=== PATIENT | male | born 2000 | race Hispanic/Latino ===

== ENCOUNTER 2022-01-28 11:02 | Emergency (ER) | payer SELFPAY ==
--- OUTSIDE RECORDS SUMMARY | 2022-01-28 11:04 | XMS REPORT | Continuity of Care Document ---
:2000 Author Organization [facility] Address [address] [place] [address] [place] [id number] Care Team Providers Name Role Phone Unavailable Unavailable Unavailable Problems This patient has no known problems. Allergies, Adverse Reactions, Alerts This patient has no known allergies or adverse reactions. Medications This patient has no known medications. Procedures This patient has no known procedures. Encounters Start End Encounter Admission Attending Care Care Encounter Source Date/Time Date/Time Type Type Clinicians Facility Department ID 2021-08-02 2021-08-02 Emergency [facility] 064 [id number] [address] [place] 00:00:00 00:00:[address] Results This patient has no known results.
--- NOTE | 2022-01-28 12:22 | RAD REPORT ---
EXAM DESCRIPTION: RAD - Knee Left 3 View - 01/28/2022 12:15 pm CLINICAL HISTORY: Left knee pain status post injury FINDINGS: No fracture or dislocation is seen. If patient continues have symptoms to suggest an occult fracture, ligamentous or meniscal injury then MRI would be recommended
--- NOTE | 2022-01-28 13:04 | ER ---
Nurse's Notes [facility] Name: Paramjit Elizondo Age: 21 yrs Sex: Male : 2000 Arrival Date: 01/28/2022 Time: 11:05 Bed Waiting Private MD: Diagnosis: Pain in knee Presentation: 01/28 11:44 Chief complaint: Patient states: Tripped and fell yesterday, reports L knee pain near ph knee cap. Coronavirus screen: Vaccine status: Patient reports being unvaccinated. Ebola Screen: No symptoms or risks identified at this time. Initial Sepsis Screen: Does the patient meet any 2 criteria? No. Patient's initial sepsis screen is negative. Does the patient have a suspected source of infection? No. Patient's initial sepsis screen is negative. Risk Assessment: Do you want to hurt yourself or someone else? Patient reports no desire to harm self or others. Onset of symptoms was January 28, 2022. 11:44 Method Of Arrival: Ambulatory 11:44 Acuity: KYLAH 4 ph Triage Assessment: 11:47 General: Appears in no apparent distress. comfortable, Behavior is calm, cooperative, ph appropriate for age. Pain: Complains of pain in left knee. Neuro: Level of Consciousness is awake, alert, obeys commands, Oriented to person, place, time, situation. Musculoskeletal: Circulation, motion, and sensation intact. Range of motion: intact in all extremities. Historical: - Allergies: 11:45 No Known Allergies; ph - PMHx: 11:45 None; ph - PSHx: 11:45 None; ph - Immunization history:: Adult Immunizations unknown. - Social history:: Smoking status: Patient denies any tobacco usage or history of. Screenin:07 Abuse screen: Denies threats or abuse. Denies injuries from another. Nutritional ph screening: No deficits noted. Tuberculosis screening: No symptoms or risk factors identified. Fall Risk None identified. Assessment: 14:05 Reassessment: Pt d/c from lobby/triage. General: SEE TRIAGE ASSESSMENT. ph Vital Signs: 11:44 BP 153 / 95; Pulse 76; Resp 18; Temp 98.1; Pulse Ox 100% on R/A; Weight 90.72 kg; ph Height 5 ft. 8 in. (172.72 cm); 14:05 BP 128 / 87; Pulse 71; Resp 18; Temp 97.6; Pulse Ox 99% on R/A; ph 11:44 Body Mass Index 30.41 (90.72 kg, 172.72 cm) ph ED Course: 11:05 Patient arrived in ED. ds1 11:26 Triston Ye DO is Attending Physician. ms3 11:45 Triage completed. ph 11:46 Arm band placed on. ph 11:49 Patient placed in waiting room, Patient notified of wait time. X-ray ordered. ph 12:17 XRAY Knee LEFT 3 view In Process Unspecified. EDMS 13:02 David Yeh MD is Referral Physician. ms3 13:06 Tanika Hernández, RN is Primary Nurse. ph 14:05 Patient has correct armband on for positive identification. ph 14:07 No provider procedures requiring assistance completed. Patient did not have IV access ph during this emergency room visit. Knee immobilizer applied on left knee. Administered Medications: No medications were administered Outcome: 13:03 Discharge ordered by MD. ms3 14:07 Discharged to home ambulatory, with significant other. ph 14:07 Condition: good 14:07 Discharge instructions given to patient, Instructed on discharge instructions, follow up and referral plans. Demonstrated understanding of instructions, follow-up care. 14:08 Patient left the ED. ph Signatures: Dispatcher [employer] EDTX James Mikki ds1 Tanika Hernández, RN RN ph Triston Ye DO DO ms3
--- NOTE | 2022-01-28 13:04 | EDPHYS ---
Physician Documentation [facility] Name: Paramjit Elizondo Age: 21 yrs Sex: Male : 2000 Arrival Date: 01/28/2022 Time: 11:05 Bed Waiting Private MD: ED Physician Triston Ye HPI: 01/28 13:03 This 21 yrs old Male presents to ER via Ambulatory with complaints of Knee ms3 Injury. 13:03 The patient presents with pain, that is acute. The complaints affect the left knee. ms3 Context: The problem was sustained. 13:03 Onset: The symptoms/episode began/occurred acutely, 2 day(s) ago. Modifying factors: ms3 The symptoms are alleviated by nothing. the symptoms are aggravated by weight bearing. Associated signs and symptoms: The patient has no apparent associated signs or symptoms. Severity of symptoms: At their worst the symptoms were moderate, this morning, in the emergency department the symptoms are unchanged. Historical: - Allergies: 11:45 No Known Allergies; ph - PMHx: 11:45 None; ph - PSHx: 11:45 None; ph - Immunization history:: Adult Immunizations unknown. - Social history:: Smoking status: Patient denies any tobacco usage or history of. ROS: 13:03 Constitutional: Negative for fever, and chills. Eyes: Negative for injury, pain, ms3 redness, and discharge, ENT: Negative for injury, pain, and discharge, Neck: Negative for injury, pain, and swelling, Cardiovascular: Negative for chest pain, and palpitations. Respiratory: Negative for shortness of breath, cough, wheezing, and pleuritic chest pain, Abdomen/GI: Negative for abdominal pain, nausea, vomiting, diarrhea, and constipation, Back: Negative for injury and pain, Skin: Negative for injury, rash, and discoloration, Neuro: Negative for headache, weakness, numbness, tingling. 13:03 MS/extremity: Positive for pain, of the left knee. Exam: 13:03 Constitutional: This is a well developed, well nourished patient who is awake, alert, ms3 and in no acute distress. Head/Face: Normocephalic, atraumatic. Chest/axilla: Normal chest wall appearance and motion. Nontender with no deformity. Cardiovascular: Regular rate and rhythm with a normal S1 and S2. No gallops, murmurs, or rubs. Normal PMI, no JVD. No pulse deficits. Respiratory: Lungs have equal breath sounds bilaterally, clear to auscultation and percussion. No rales, rhonchi or wheezes noted. No increased work of breathing, no retractions or nasal flaring. Abdomen/GI: Soft, non-tender, with normal bowel sounds. No distension or tympany. No guarding or rebound. No evidence of tenderness throughout. Skin: Warm, dry with normal turgor. Normal color with no rashes, no lesions, and no evidence of cellulitis. 13:03 Musculoskeletal/extremity: Extremities: noted in the left knee: pain, tenderness. Vital Signs: 11:44 BP 153 / 95; Pulse 76; Resp 18; Temp 98.1; Pulse Ox 100% on R/A; Weight 90.72 kg; ph Height 5 ft. 8 in. (172.72 cm); 14:05 BP 128 / 87; Pulse 71; Resp 18; Temp 97.6; Pulse Ox 99% on R/A; ph 11:44 Body Mass Index 30.41 (90.72 kg, 172.72 cm) ph MDM: 13:03 Patient medically screened. ms3 13:03 Differential diagnosis: dislocation, closed fracture, contusion. Data reviewed: vital ms3 signs, nurses notes, radiologic studies, plain films. Data interpreted: Pulse oximetry: on room air is 99 %. Interpretation: normal. Counseling: I had a detailed discussion with the patient and/or guardian regarding: the historical points, exam findings, and any diagnostic results supporting the discharge/admit diagnosis, radiology results, the need for outpatient follow up, to return to the emergency department if symptoms worsen or persist or if there are any questions or concerns that arise at home. 01/28 11:47 Order name: XRAY Knee LEFT 3 view; Complete Time: 22:00 ph 01/28 14:07 Order name: Knee Immobilizer; Complete Time: 14:07 ph Administered Medications: No medications were administered Disposition Summary: 01/28/22 13:03 Discharge Ordered Location: Home ms3 Condition: Stable ms3 Problem: new ms3 Symptoms: are unchanged ms3 Diagnosis - Pain in knee ms3 Followup: ms3 - With: Yeh, David, MD - When: 2 - 3 days - Reason: Discharge Instructions: - Discharge Summary Sheet ph - Acute Knee Pain, Adult ms3 Forms: - Medication Reconciliation Form ms3 - Thank You Letter ms3 - Work release form ph - Antibiotic Education ms3 - Prescription Opioid Use ms3 Prescriptions: - Ibuprofen 600 mg Oral Tablet - take 1 tablet by ORAL route every 6 hours As needed take with food; 30 tablet; ms3 Refills: 0, Product Selection Permitted Signatures: Dispatcher [employer] Tanika Richmond RN RN ph Triston Ye, DO ms3
[2022-01-28 16:51] VITALS: BP 153/95; TEMP 98.1; O2SAT 100
== END 2022-01-28 14:08 | disposition home or self-care (01) ==
LOC: ER 11:02
DX: M25.562 Pain in left knee (principal)
CPT/HCPCS: 99283

== ENCOUNTER 2022-10-30 03:03 | Emergency (ER) | payer SELFPAY ==
[2022-10-30] MEDS ORDERED: KETOROLAC 30 MG/ML INJ ONE (03:28)
--- OUTSIDE RECORDS SUMMARY | 2022-10-30 04:27 | XMS REPORT | Continuity of Care Document ---
:2000 Author Organization [facility] t Address [address] [place] [address] Care Team Providers Name Role Phone Asked, No Pcp Primary Care Physician Unavailable Problems This patient has no known problems. Allergies, Adverse Reactions, Alerts This patient has no known allergies or adverse reactions. Social History Social Habit Start Date Stop Date Quantity Comments Source Sex Assigned At [birth year] [facility] 00:00:00 00:00:00 Smoking Status Start Date Stop Date Source Tobacco smoking consumption unknown [facility] Medications This patient has no known medications. Procedures This patient has no known procedures. Encounters Start End Encounter Admission Attending Care Care Encounter Source Date/Time Date/Time Type Type Clinicians Facility Department ID 2021-08-02 2021-08-02 Emergency [facility] [id number] [place] 00:00:00 00:00:[address] Results This patient has no known results.
[2022-10-30 05:08] LABS: Absolute Lymphocytes (CBC) 2.6 K/uL (0.7-4.9); Hematocrit 46.6 % (39.6-49.0); Lymphocytes % 28.1 % (15.3-44.8); RBC Red Blood Cell Count 5.24 M/uL (4.33-5.43)
[2022-10-30 05:11] LABS: Potassium 3.8 mmol/L (3.5-5.1); Troponin High Sensitivity 3.4 pg/mL (<58.9)
--- NOTE | 2022-10-30 05:30 | ER ---
Nurse's Notes [facility] Name: Paramjit Elizondo Age: 22 yrs Sex: Male : 2000 Arrival Date: 10/30/2022 Time: 03:03 Bed 19 Private MD: Diagnosis: Chest pain, unspecified;Chest pain on breathing Presentation: 10/30 03:02 Chief complaint: Patient states: CP THAT STARTED LAST NIGHT. WOKE HIM UP OUT OF HIS [facility] SLEEP. Coronavirus screen: Vaccine status: Patient reports being unvaccinated. At this time, the client does not indicate any symptoms associated with coronavirus-19. Ebola Screen: No symptoms or risks identified at this time. Initial Sepsis Screen: Does the patient meet any 2 criteria? No. Patient's initial sepsis screen is negative. Does the patient have a suspected source of infection? No. Patient's initial sepsis screen is negative. Risk Assessment: Do you want to hurt yourself or someone else? Patient reports no desire to harm self or others. Onset of symptoms was October 29, 2022. 03:02 Method Of Arrival: Ambulatory [facility] 03:02 Acuity: KYLAH 3 jj7 Triage Assessment: 03:18 General: Appears in no apparent distress. uncomfortable, Behavior is calm, cooperative, jj7 appropriate for age. Pain: Complains of pain in xiphoid area and mid-sternal area. Cardiovascular: Reports chest pain. Historical: - Allergies: 03:18 No Known Allergies; jj7 - PMHx: 03:18 None; jj7 - PSHx: 03:18 None; jj7 - Immunization history:: Client reports having NOT received the Covid vaccine. Flu vaccine is not up to date. - Social history:: Smoking status: Patient denies any tobacco usage or history of. Patient/guardian denies using alcohol, street drugs. - Family history:: not pertinent. - Hospitalizations: : No recent hospitalization is reported. Screenin:20 [facility] ED Fall Risk Assessment (Adult) History of falling in the last 3 months, jj7 including since admission No falls in past 3 months (0 pts) Confusion or Disorientation No (0 pts) Intoxicated or Sedated No (0 pts) Impaired Gait No (0 pts) Mobility Assist Device Used No (0 pt) Altered Elimination No (0 pt) Score/Fall Risk Level 0 - 2 = Low Risk. [facility] ED Fall Risk Assessment (Adult) Score/Fall Risk Level 0 - 2 = Low Risk Oriented to surroundings, Maintained a safe environment. Abuse screen: Denies threats or abuse. Nutritional screening: No deficits noted. Tuberculosis screening: No symptoms or risk factors identified. Assessment: 03:20 Reassessment: SEE TRIAGE ASSESSMENT. Pain: Pain does not radiate. Pain began suddenly. jj7 Vital Signs: 03:02 BP 132 / 92; Pulse 94; Resp 19; Temp 98; Pulse Ox 98% ; Weight 86.18 kg; Height 5 ft. 8 jj7 in. (172.72 cm); Pain 7/10; 04:05 BP 123 / 84; Pulse 87; Resp 18; Pulse Ox 97% ; Pain 5/10; jj7 05:09 BP 126 / 84; Pulse 80; Resp 20; Pulse Ox 98% ; Pain 1/10; jj7 03:02 Body Mass Index 28.89 (86.18 kg, 172.72 cm) jj7 ED Course: 03:03 Patient arrived in ED. ja2 03:06 Royal Kirby MD is Attending Physician. rn 03:13 Shraddha Retana RN is Primary Nurse. jj7 03:18 Triage completed. jj7 03:18 Arm band placed on right wrist. Patient placed in an exam room, on a stretcher, on jj7 oxygen, on monitoring manager, on pulse oximetry. 03:20 Patient has correct armband on for positive identification. Bed in low position. Call jj7 light in reach. Adult w/ patient. Client placed on continuous cardiac and pulse oximetry monitoring. NIBP monitoring applied. phototypesetting equipment monitor on. 05:12 No provider procedures requiring assistance completed. IV discontinued, intact, jj7 bleeding controlled, No redness/swelling at site. Pressure dressing applied. 05:12 Patient maintains SpO2 saturation greater than 95% on room air. jj7 Administered Medications: 03:31 Drug: Ketorolac 15 mg Route: IVP; Site: right antecubital; jj7 03:40 Follow up: Response: Marked relief of symptoms jj7 Medication: 03:20 VIS not applicable for this client. jj7 Outcome: 04:55 Discharge ordered by . rn 05:12 Discharged to home ambulatory, with significant other. jj7 05:12 Condition: improved 05:12 Discharge instructions given to patient, Instructed on discharge instructions, follow up and referral plans. Demonstrated understanding of instructions, follow-up care. 05:18 Patient left the ED. jj7 Signatures: Royal Kirby MD MD rn Alexander, Jessica ja2 Johnson, Juwairiyah, RN RN jj7
--- NOTE | 2022-10-30 05:30 | EDPHYS ---
Physician Documentation [facility] Name: Paramjit Elizondo Age: 22 yrs Sex: Male : 2000 Arrival Date: 10/30/2022 Time: 03:03 Bed 19 Private MD: ED Physician Royal Kirby HPI: 10/30 03:37 This 22 yrs old Male presents to ER via Ambulatory with complaints of Chest rn Pain. 03:37 The patient or guardian reports chest pain that is located primarily in the anterior rn chest wall. The pain does not radiate. Associated signs and symptoms: Pertinent positives: cough, Pertinent negatives: abdominal pain, lower extremity pain, lower extremity swelling, near syncope, palpitations, shortness of breath, syncope, vomiting. The chest pain is described as sharp, stabbing. Duration: The patient or guardian reports multiple episodes. Modifying factors: The symptoms are alleviated by nothing. the symptoms are aggravated by cough, deep breath. Severity of pain: At its worst the pain was moderate in the emergency department the pain has improved. The patient has not experienced similar symptoms in the past. The patient has not recently seen a physician. Pt reports central chest pain, sharp/stabbing, worse with movement and deep inspiration. NO trauma. + sick recently, just got over cough/congestion. Feels better but chest pain woke him up from sleep tonight. NO hemoptysis. No famhx of early cardiac problems. No drugs or smoking. . Historical: - Allergies: 03:18 No Known Allergies; jj7 - PMHx: 03:18 None; jj7 - PSHx: 03:18 None; jj7 - Immunization history:: Client reports having NOT received the Covid vaccine. Flu vaccine is not up to date. - Social history:: Smoking status: Patient denies any tobacco usage or history of. Patient/guardian denies using alcohol, street drugs. - Family history:: not pertinent. - Hospitalizations: : No recent hospitalization is reported. ROS: 03:37 Constitutional: Negative for fever, chills, and weight loss, Eyes: Negative for injury, rn pain, redness, and discharge, Neck: Negative for injury, pain, and swelling, Cardiovascular: + chest pain Respiratory: Negative for wheezing, and pleuritic chest pain, Abdomen/GI: Negative for abdominal pain, nausea, vomiting, diarrhea, and constipation, MS/Extremity: Negative for injury and deformity, Skin: Negative for injury, rash, and discoloration, Neuro: Negative for headache, weakness, numbness, tingling, and seizure. Exam: 03:37 Constitutional: This is a well developed, well nourished patient who is awake, alert, rn and in no acute distress. Head/Face: Normocephalic, atraumatic. Eyes: Periorbital areas with no swelling, redness, or edema. Cardiovascular: Regular rate and rhythm. No pulse deficits. Respiratory: Clear bilteral breath sounds, no retractions. No wheezing. Abdomen/GI: Soft, non-tender Skin: Warm, dry with normal turgor. Normal color with no rashes, no lesions, and no evidence of cellulitis. MS/ Extremity: Pulses equal, no cyanosis. Neuro: Awake and alert, GCS 15 04:00 ECG was reviewed by the Attending Physician. rn Vital Signs: 03:02 BP 132 / 92; Pulse 94; Resp 19; Temp 98; Pulse Ox 98% ; Weight 86.18 kg; Height 5 ft. 8 jj7 in. (172.72 cm); Pain 7/10; 04:05 BP 123 / 84; Pulse 87; Resp 18; Pulse Ox 97% ; Pain 5/10; jj7 05:09 BP 126 / 84; Pulse 80; Resp 20; Pulse Ox 98% ; Pain 1/10; jj7 03:02 Body Mass Index 28.89 (86.18 kg, 172.72 cm) jj7 MDM: 03:06 Patient medically screened. rn 04:04 Independent interpretation of the following test(s) in the Emergency Department EKG: rn See my EKG interpretation above X-Ray: My interpretation is CXR neg for pneumothorax or acute infiltrate. 04:53 Differential diagnosis: acute pericarditis, anxiety, chest wall pain, costochondritis, rn esophagitis, gastritis, gastroesophageal reflux disease (GERD), pericarditis, pleurisy, pneumothorax, pulmonary embolus. Data reviewed: vital signs, nurses notes, lab test result(s), EKG, radiologic studies, plain films, and as a result, I will discharge patient. Counseling: I had a detailed discussion with the patient and/or guardian regarding: the historical points, exam findings, and any diagnostic results supporting the discharge/admit diagnosis, lab results, radiology results, the need for outpatient follow up, to return to the emergency department if symptoms worsen or persist or if there are any questions or concerns that arise at home. Response to treatment: the patient's symptoms have mildly improved after treatment, and as a result, I will discharge patient. ED course: CXR neg, no abnormal findings in bloodwork. D-dimer <500, normal by our cutoff. + sharp stabbing pain after recent infection, pleuritic pain, worse with deep inspiration and movement, with neg d-dimer. Will dc home with return precautions. Trop and ecg normal as well. . 10/30 03:12 Order name: Cardiac monitoring; Complete Time: 03:35 rn 10/30 03:12 Order name: EKG - Nurse/Tech; Complete Time: :35 rn 10/30 03:12 Order name: IV Saline Lock; Complete Time: :35 rn 10/30 03:12 Order name: Labs collected and sent; Complete Time: :35 rn 10/30 03:12 Order name: O2 Per Protocol; Complete Time: :35 rn 10/30 03:12 Order name: O2 Sat Monitoring; Complete Time: 03:35 rn EC:00 Rate is 81 beats/min. Rhythm is regular. QRS [place] is Normal. MT interval is normal. QRS rn interval is normal. QT interval is normal. No Q waves. T waves are Normal. No ST changes noted. Clinical impression: Normal ECG. Interpreted by me. Reviewed by me. Administered Medications: 03:31 Drug: Ketorolac 15 mg Route: IVP; Site: right antecubital; jj7 03:40 Follow up: Response: Marked relief of symptoms jj7 Disposition Summary: 10/30/22 04:55 Discharge Ordered Location: Home rn Problem: new rn Symptoms: have improved rn Condition: Stable rn Diagnosis - Chest pain, unspecified rn - Chest pain on breathing rn Followup: rn - With: Private Physician - When: As needed - Reason: Recheck today's complaints, Re-evaluation by your physician Discharge Instructions: - Discharge Summary Sheet rn - Nonspecific Chest Pain, Adult rn - Pleurisy rn Forms: - Medication Reconciliation Form rn - Thank You Letter rn - Antibiotic varnish inspector - Prescription Opioid Use rn - Work release form mw2 Signatures: Royal Kirby MD MD rn Johnson, Juwairiyah, RN RN jj7
[2022-10-30 07:41] VITALS: BP 126/84; O2SAT 98
--- NOTE | 2022-10-30 14:42 | RAD REPORT ---
EXAM DESCRIPTION: Chest Single View CLINICAL HISTORY: 22 years Male Chest Pain COMPARISON: None FINDINGS: Lung volumes adequate. Cardiac silhouette is normal. No pneumothorax. No large pleural effusion. No focal consolidation. No acute bony finding. IMPRESSION: No acute cardiopulmonary findings. Electronically signed by: Margie Rausch MD 10/30/2022 4:48 AM DITCHING MACHINE ENGINEER Due to temporary technical issues with the PACS/Fluency reporting system, reports are being signed by the in house radiologists without review as a courtesy to insure prompt reporting. The interpreting radiologist is fully responsible for the content of the report.
== END 2022-10-30 05:18 | disposition home or self-care (01) ==
LOC: ER 03:03
DX: R07.89 Other chest pain (principal); R07.1 Chest pain on breathing
CPT/HCPCS: 36415; 71045; 80048; 83880; 84484; 85025; 85379; 96374; 99284

== ENCOUNTER 2022-12-17 11:02 | Emergency (ER) | payer SELFPAY ==
--- OUTSIDE RECORDS SUMMARY | 2022-12-17 11:07 | XMS REPORT | Continuity of Care Document ---
:2000 Author Organization [facility] t Address [address] [facility] [address] [place] [address] Care Team Providers Name Role Phone Asked, No Pcp Primary Care Physician Unavailable Problems This patient has no known problems. Allergies, Adverse Reactions, Alerts This patient has no known allergies or adverse reactions. Social History Social Habit Start Date Stop Date Quantity Comments Source Sex Assigned At [birth year] [facility] 00:00:00 00:00:00 Smoking Status Start Date Stop Date Source Tobacco smoking consumption unknown [facility] Medications This patient has no known medications. Procedures This patient has no known procedures. Encounters Start End Encounter Admission Attending Care Care Encounter Source Date/Time Date/Time Type Type Clinicians Facility Department ID 2021-08-02 2021-08-02 Emergency [facility] 064 [id number] [address] [place] 00:00:00 00:00:[address] Results This patient has no known results.
[2022-12-17 11:32] LABS: Urine Blood Negative (Negative); Urine Glucose Negative (Negative); Urine Protein Negative (Negative); Urine Specific Gravity 1.025 (1.005-1.030)
[2022-12-17 11:40] LABS: Absolute Lymphocytes (CBC) 1.4 K/uL (0.7-4.9); Hematocrit 46.3 % (39.6-49.0); Lymphocytes % 14.5 % (15.3-44.8); MCV 88.8 fL (80-100); MPV 8.2 fL (7.6-11.3); RBC Red Blood Cell Count 5.21 M/uL (4.33-5.43)
[2022-12-17 11:41] LABS: Protime INR 1.02
[2022-12-17 11:48] LABS: Barbiturates NEGATIVE (NEGATIVE); Benzodiazepines NEGATIVE (NEGATIVE); Cocaine NEGATIVE (NEGATIVE); METHAMPHETAM NEGATIVE (NEGATIVE); Methadone NEGATIVE (NEGATIVE); Opiates NEGATIVE (NEGATIVE); Phencyclidine NEGATIVE (NEGATIVE); THC Cannibis NEGATIVE (NEGATIVE)
[2022-12-17 11:52] LABS: ALT/SGPT 36 U/L (16-61); AST/SGOT 22 U/L (15-37); Albumin 4.1 g/dL (3.4-5.0); BUN Blood Urea Nitrogen 12 mg/dL (7-18); Bicarbonate 28 mmol/L (21-32); Bilirubin Direct 0.2 mg/dL (0-0.2); Glomerular Filtration Rate 99 ml/min (=/>90); Glucose Level 113 mg/dL (74-106); Lipase 22 U/L (13-75); Magnesium 2.3 mg/dL (1.6-2.4); Sodium Level 138 mmol/L (136-145)
[2022-12-17 11:57] LABS: Alkaline Phosphatase 110 U/L (45-117); Bilirubin Total 0.7 mg/dL (0.2-1.0); NT PRO-BNP 11 pg/mL (<125); Protein, Total 7.5 g/dL (6.4-8.2)
[2022-12-17 12:15] LABS: Troponin High Sensitivity < 3.0 pg/mL (<58.9)
--- NOTE | 2022-12-17 12:33 | RAD REPORT ---
EXAM DESCRIPTION: CT - Chest For Pe Angio - 12/17/2022 12:03 pm CLINICAL HISTORY: Chest pain COMPARISON: None. TECHNIQUE: Dynamically enhanced axial 3 mm thick images of the chest were obtained during administra tion of 100 mL Isovue 370 IV contrast. Coronal and oblique reconstruction images were generated and r eviewed. Exam utilizes a protocol for optimal evaluation of pulmonary arterial tree. Maximum intensity projections 3D imaging was utilized All CT scans are performed using dose optimization technique as appropriate and may include automated exposure control or mA/KV adjustment according to patient size. FINDINGS: A pulmonary embolus is not seen. A thoracic aortic aneurysm is not noted. A pleural effusion is not seen. A pericardial effusion is not seen. A lung consolidation is not present. IMPRESSION: Negative for a pulmonary embolism.
--- NOTE | 2022-12-17 12:34 | RAD REPORT ---
EXAM DESCRIPTION: [place] Single View12/17/2022 12:07 pm CLINICAL HISTORY: Chest pain COMPARISON: October 2022 FINDINGS: The lungs appear clear of acute infiltrate. The heart is normal size IMPRESSION: No acute abnormalities displayed
[2022-12-17 13:43] VITALS: BP 132/79; TEMP 97.7; O2SAT 96
--- NOTE | 2022-12-18 13:05 | EKG ---
Test Date: 2022-12-17 Test Time: 11:19:11 Pulmonary Disease Specialist: KOKO MEASUREMENT RESULTS: Intervals: Rate: 76 DE: 144 QRSD: 92 QT: 360 QTc: 405 [place]: P: 64 DE: 144 QRS: 11 T: 66 INTERPRETIVE STATEMENTS: Normal sinus rhythm Normal ECG No previous ECG available for comparison Electronically Signed On 12-18-22 13:03:23 DIRECTOR OF LABOR AND DELIVERY by Abdullahi Moss
--- NOTE | 2023-01-03 14:22 | EDPHYS ---
Physician Documentation [facility] Name: Paramjit Elizondo Age: 22 yrs Sex: Male : 2000 Arrival Date: 12/17/2022 Time: 11:05 Bed IW2 Private MD: ED Physician Chele Chun HPI: 12/17 12:44 This 22 yrs old Male presents to ER via Ambulatory with complaints of Chest yasmany Pain, Shortness Of Breath, Vomiting. 12:44 The patient or guardian reports chest pain that is located primarily in the anterior yasmany chest wall, bilaterally. The pain does not radiate. Associated signs and symptoms: Pertinent positives: shortness of breath. The chest pain is described as aching. Duration: The patient or guardian reports multiple episodes, with no pattern. Modifying factors: The symptoms are alleviated by nothing. the symptoms are aggravated by cough, deep breath. Severity of pain: At its worst the pain was mild in the emergency department the pain is unchanged. The patient has not experienced similar symptoms in the past. Historical: - Allergies: 11:10 No Known Allergies; ld1 - PMHx: 11:10 None; ld1 - PSHx: 11:10 None; ld1 - Immunization history:: Adult Immunizations up to date, Client reports having NOT received the Covid vaccine. - Social history:: Smoking status: Patient denies any tobacco usage or history of. Patient uses alcohol, occasionally. - Family history:: not pertinent. ROS: 12:44 Constitutional: Negative for fever, chills, and weight loss, Eyes: Negative for injury, yasmany pain, redness, and discharge, ENT: Negative for injury, pain, and discharge, Neck: Negative for injury, pain, and swelling, Abdomen/GI: Negative for abdominal pain, nausea, vomiting, diarrhea, and constipation, Back: Negative for injury and pain, : Negative for injury, bleeding, discharge, and swelling, MS/Extremity: Negative for injury and deformity, Skin: Negative for injury, rash, and discoloration, Neuro: Negative for headache, weakness, numbness, tingling, and seizure, Psych: Negative for depression, anxiety, suicide ideation, homicidal ideation, and hallucinations, Allergy/Immunology: Negative for hives, rash, and allergies, Endocrine: Negative for neck swelling, polydipsia, polyuria, polyphagia, and marked weight changes, Hematologic/Lymphatic: Negative for swollen nodes, abnormal bleeding, and unusual bruising. 12:44 Cardiovascular: Positive for chest pain, of the chest. 12:44 Respiratory: Positive for pleurisy, shortness of breath. Exam: 12:44 Constitutional: This is a well developed, well nourished patient who is awake, alert, yasmany and in no acute distress. Head/Face: Normocephalic, atraumatic. Eyes: Pupils equal round and reactive to light, extra-ocular motions intact. Lids and lashes normal. Conjunctiva and sclera are non-icteric and not injected. Cornea within normal limits. Periorbital areas with no swelling, redness, or edema. ENT: Nares patent. No nasal discharge, no septal abnormalities noted. Tympanic membranes are normal and external auditory canals are clear. Oropharynx with no redness, swelling, or masses, exudates, or evidence of obstruction, uvula midline. Mucous membranes moist. Neck: Trachea midline, no thyromegaly or masses palpated, and no cervical lymphadenopathy. Supple, full range of motion without nuchal rigidity, or vertebral point tenderness. No Meningismus. Chest/axilla: Normal chest wall appearance and motion. Nontender with no deformity. No lesions are appreciated. Cardiovascular: Regular rate and rhythm with a normal S1 and S2. No gallops, murmurs, or rubs. Normal PMI, no JVD. No pulse deficits. Respiratory: Lungs have equal breath sounds bilaterally, clear to auscultation and percussion. No rales, rhonchi or wheezes noted. No increased work of breathing, no retractions or nasal flaring. Abdomen/GI: Soft, non-tender, with normal bowel sounds. No distension or tympany. No guarding or rebound. No evidence of tenderness throughout. Back: No spinal tenderness. No costovertebral tenderness. Full range of motion. Male : Normal genitalia with no discharge or lesions. Skin: Warm, dry with normal turgor. Normal color with no rashes, no lesions, and no evidence of cellulitis. MS/ Extremity: Pulses equal, no cyanosis. Neurovascular intact. Full, normal range of motion. Neuro: Awake and alert, GCS 15, oriented to person, place, time, and situation. Cranial nerves II-XII grossly intact. Motor strength 5/5 in all extremities. Sensory grossly intact. Cerebellar exam normal. Normal gait. Psych: Awake, alert, with orientation to person, place and time. Behavior, mood, and affect are within normal limits. 12:44 ECG was reviewed by the Attending Physician. Vital Signs: 11:09 BP 132 / 79; Pulse 81; Resp 18; Temp 97.7(TE); Pulse Ox 96% on R/A; Weight 90.72 kg; ld1 Height 5 ft. 8 in. ; Pain 7/10; 11:09 Body Mass Index 30.41 (90.72 kg, 172.72 cm) ld1 11:09 Pain Scale: Adult ld1 MDM: 11:06 Patient medically screened. yasmany 12:46 Differential diagnosis: abnormal EKG, acute myocardial infarction, acute pericarditis, yasmany anxiety, coronary artery disease chest wall pain, congestive heart failure costochondritis, esophagitis, gastroesophageal reflux disease (GERD), hiatal hernia, pancreatitis, peptic ulcer disease, pericarditis, pneumonia, pulmonary embolus, stable angina, thoracic aortic disection. HEART Score: History: Slightly Suspicious (0), ECG: Normal (0), Age: < or = 45 years (0), Risk Factors: No Risk Factors Known (0), Troponin: < or = 1 x Normal Limit (0). MIGUELINA Risk Score: TOTAL SCORE = 0. Data reviewed: vital signs, nurses notes, lab test result(s), EKG, radiologic studies, CT scan, plain films. Consideration of Admission/Observation Escalation of care including admission/observation considered. I considered the following discharge prescriptions or medication management in the emergency department Medications were administered in the Emergency Department. See MAR. Test considered but Not performed: Ultrasound NO ECHO. 12/17 11:14 Order name: Basic Metabolic Panel 12/17 11:14 Order name: CBC with Diff 12/17 11:14 Order name: LFT's 12/17 11:14 Order name: Magnesium 12/17 11:14 Order name: NT PRO-BNP 12/17 11:14 Order name: PT-INR 12/17 11:14 Order name: Troponin HS 12/17 11:14 Order name: Lipase 12/17 11:14 Order name: UDS 12/17 11:32 Order name: Urine Dipstick-Ancillary; Complete Time: 12:42 EDMS 12/17 11:41 Order name: Protime (+INR); Complete Time: 12:42 [facility] 12/17 11:45 Order name: CBC with Automated Diff; Complete Time: 12:42 [facility] 12/17 11:49 Order name: Urine Drug Screen; Complete Time: 12:42 [facility] 12/17 11:52 Order name: Basic Metabolic Panel; Complete Time: 12:42 [facility] 12/17 11:52 Order name: Liver (Hepatic) Function; Complete Time: 12:42 [facility] 12/17 11:52 Order name: Magnesium; Complete Time: 12:42 [facility] 12/17 11:52 Order name: Lipase; Complete Time: 12:42 [facility] 12/17 12:16 Order name: Troponin High Sensitivity; Complete Time: 12:42 [facility] 12/17 12:16 Order name: NT PRO-BNP; Complete Time: 12:42 [facility] 12/17 11:14 Order name: XRAY Chest (1 view) [facility] 12/17 11:14 Order name: CT Chest For PE Angio [facility] 12/17 12:34 Order name: CT; Complete Time: 12:42 [facility] 12/17 12:34 Order name: RAD; Complete Time: 12:42 [facility] 12/17 11:14 Order name: EKG; Complete Time: 11:15 [facility] 12/17 11:14 Order name: Cardiac monitoring [facility] 12/17 11:14 Order name: EKG - Nurse/Tech; Complete Time: 11:32 [facility] 12/17 11:14 Order name: IV Saline Lock; Complete Time: 11:32 [facility] 12/17 11:14 Order name: Labs collected and sent; Complete Time: 11:32 [facility] 12/17 11:14 Order name: O2 Per Protocol; Complete Time: 11:32 [facility] 12/17 11:14 Order name: O2 Sat Monitoring; Complete Time: 11:32 [facility] 12/17 11:14 Order name: Urine Dipstick-Ancillary (obtain specimen); Complete Time: 11:32 [facility] EC:44 Rate is 76 beats/min. Rhythm is regular. QRS [place] is Normal. DC interval is normal. QRS yasmany interval is normal. QT interval is normal. No Q waves. T waves are Normal. No ST changes noted. Clinical impression: Normal ECG and No evidence of ischemia. Interpreted by me. Reviewed by me. Administered Medications: 13:02 Not Given (Patient Refused): NS 0.9% IV 1000 ml IV at 1 bolus Per protocol; 1000 mL iw bolus 13:02 Not Given (Patient Refused): Aspirin PO Chewable Tablet 81 mg PO once iw 13:02 Not Given (Patient Refused): Ketorolac IVP 30 mg IVP once iw Disposition Summary: 12/17/22 12:49 Discharge Ordered Location: Home yasmany Problem: new yasmany Symptoms: have improved yasmany Condition: Stable yasmany Diagnosis - Chest pain, unspecified yasmany - Chest pain on breathing yasmany - Dyspnea yasmany Followup: yasmany - With: Private Physician - When: 2 - 3 days - Reason: Recheck today's complaints, Continuance of care, Re-evaluation by your physician Followup: yasmany - With: Abdullahi Moss MD - When: 2 - 3 days - Reason: Recheck today's complaints, Continuance of care, Re-evaluation by your physician Discharge Instructions: - Discharge Summary Sheet yasmany - Nonspecific Chest Pain, Adult yasmany - Chest Wall Pain yasmany - Chest Wall Pain, [id number] yasmany - Nonspecific Chest Pain, Adult, [id number] yasmany - Aspirin and Your Heart yasmany Forms: - Medication Reconciliation Form yasmany - Thank You Letter yasmany - Antibiotic Education yasmany - Prescription Opioid Use yasmany - Work release form iw Prescriptions: - Ibuprofen 600 mg Oral Tablet - take 1 tablet by ORAL route every 8 hours As needed take with food; 21 tablet; yasmany Refills: 0, Product Selection Permitted - Pepcid 20 mg Oral Tablet - take 1 tablet by ORAL route every 12 hours for 21 days; 42 tablet; Refills: 0, yasmany Product Selection Permitted Signatures: Dispatcher [employer] Chele Sibley MD MD cha Dibbern, Lauren, RN RN ld1 Mary Connor RN iw
--- NOTE | 2023-01-03 14:22 | ER ---
Nurse's Notes [facility] Name: Paramjit Elizondo Age: 22 yrs Sex: Male : 2000 Arrival Date: 12/17/2022 Time: 11:05 Bed IW2 Private MD: Diagnosis: Chest pain, unspecified;Chest pain on breathing;Dyspnea Presentation: 12/17 11:09 Chief complaint: Patient states: Left work today because I began feeling SOB \T\ Chest ld1 pain. Coronavirus screen: At this time, the client does not indicate any symptoms associated with coronavirus-19. Ebola Screen: No symptoms or risks identified at this time. Initial Sepsis Screen: Does the patient meet any 2 criteria? No. Patient's initial sepsis screen is negative. Does the patient have a suspected source of infection? No. Patient's initial sepsis screen is negative. Risk Assessment: Do you want to hurt yourself or someone else? Patient reports no desire to harm self or others. Onset of symptoms was December 17, 2022 at 11:10. 11:09 Method Of Arrival: Ambulatory ld1 11:09 Acuity: KYLAH 3 ld1 Triage Assessment: 11:10 General: Appears in no apparent distress. comfortable, Behavior is calm, cooperative, ld1 appropriate for age. Pain: Complains of pain in chest Pain does not radiate. Pain currently is 7 out of 10 on a pain scale. Quality of pain is described as sharp, Is intermittent. EENT: No signs and/or symptoms were reported regarding the EENT system. Neuro: Level of Consciousness is awake, alert, obeys commands, Oriented to person, place, time, situation. Cardiovascular: Capillary refill < 3 seconds Patient's skin is warm and dry. Chest pain is described as mild. Respiratory: Reports shortness of breath at rest on exertion. GI: Abdomen is flat, non-distended. Historical: - Allergies: 11:10 No Known Allergies; ld1 - PMHx: 11:10 None; ld1 - PSHx: 11:10 None; ld1 - Immunization history:: Adult Immunizations up to date, Client reports having NOT received the Covid vaccine. - Social history:: Smoking status: Patient denies any tobacco usage or history of. Patient uses alcohol, occasionally. - Family history:: not pertinent. Vital Signs: 11:09 BP 132 / 79; Pulse 81; Resp 18; Temp 97.7(TE); Pulse Ox 96% on R/A; Weight 90.72 kg; ld1 Height 5 ft. 8 in. ; Pain 710; 11:09 Body Mass Index 30.41 (90.72 kg, 172.72 cm) ld1 11:09 Pain Scale: Adult ld1 ED Course: 11:05 Patient arrived in ED. rg4 11:06 Chele Chun MD is Attending Physician. yasmany 11:10 Triage completed. ld1 11:10 Arm band placed on right wrist. ld1 11:32 UDS Sent. ld1 11:32 Inserted saline lock: 20 gauge in left antecubital area, using aseptic technique. ld1 12:48 Abdullahi Moss MD is Referral Physician. [facility] 12:56 Mary Connor, RN is Primary Nurse. iw Administered Medications: 13:02 Not Given (Patient Refused): NS 0.9% IV 1000 ml IV at 1 bolus Per protocol; 1000 mL iw bolus 13:02 Not Given (Patient Refused): Aspirin PO Chewable Tablet 81 mg PO once iw 13:02 Not Given (Patient Refused): Ketorolac IVP 30 mg IVP once iw Outcome: 12:49 Discharge ordered by . [facility] 13:02 Patient left the ED. iw Signatures: Chele Chun MD MD cha Williams, Irene, RN Melina Guerrier rg4 Fatmata Jolly RN RN ld1
== END 2022-12-17 13:02 | disposition home or self-care (01) ==
LOC: ER 11:02
DX: R07.89 Other chest pain (principal); R07.1 Chest pain on breathing; R06.00 Dyspnea, unspecified
CPT/HCPCS: 36415; 71045; 71275; 80048; 80076; 80307; 81003; 83690; 83735; 83880; 84484; 85025; 85610; 93005; 99283; Q9967

== ENCOUNTER 2023-02-06 23:52 | Emergency (ER) | payer BC, SELFPAY ==
--- OUTSIDE RECORDS SUMMARY | 2023-02-06 23:55 | XMS REPORT | Continuity of Care Document ---
:2000 Author Organization [facility] t Address [address] [facility] [address] [place] [address] Care Team Providers Name Role Phone Asked, No Pcp Primary Care Physician Unavailable Problems This patient has no known problems. Allergies, Adverse Reactions, Alerts This patient has no known allergies or adverse reactions. Social History Social Habit Start Date Stop Date Quantity Comments Source Gender identity [facility] Sexual orientation Method [facility] Sex Assigned At [address] [facility] 00:00:00 00:00:00 Smoking Status Start Date Stop Date Source Tobacco smoking consumption unknown [facility] Medications This patient has no known medications. Procedures This patient has no known procedures. Encounters Start End Encounter Admission Attending Care Care Encounter Source Date/Time Date/Time Type Type Clinicians Facility Department ID 2021-08-02 2021-08-02 Emergency [facility] [id number] [address] [place] 00:00:00 00:00:[address] Results This patient has no known results.
[2023-02-07] MEDS ORDERED: ONDANSETRON 4 MG (ODT) TAB ONE (00:30)
[2023-02-07] MEDS ORDERED: ACETAMINOPHEN 500 MG TAB ONE (00:30)
[2023-02-07] MEDS ORDERED: AZITHROMYCIN 250 MG TAB ONE (00:30)
[2023-02-07 01:40] LABS: SARS-CoV-2 Antigen Rapid Res Negative (Negative)
--- NOTE | 2023-02-07 01:45 | ER ---
Nurse's Notes [facility] Name: Paramjit Elizondo Age: 22 yrs Sex: Male : 2000 Arrival Date: 02/06/2023 Time: 23:52 Bed 19 Private MD: Diagnosis: Dizziness and giddiness;Vomiting;Acute upper respiratory infection, unspecified Presentation: 02/06 23:59 Chief complaint: Patient states: dizziness and emesis since 10 pm reports 2 episodes of kl vomitng. Coronavirus screen: Vaccine status: Patient reports being unvaccinated. Ebola Screen: Patient negative for fever greater than or equal to 101.5 degrees Fahrenheit, and additional compatible Ebola Virus Disease symptoms. Risk Assessment: Do you want to hurt yourself or someone else? Patient reports no desire to harm self or others. 23:59 Method Of Arrival: Ambulatory 23:59 Acuity: KYLAH 3 kl 02/07 00:02 Initial Sepsis Screen: Does the patient meet any 2 criteria? HR > 90 bpm. Does the patient have a suspected source of infection? No. Patient's initial sepsis screen is negative. 02:11 Onset of symptoms was February 01, 2023. ha1 Triage Assessment: 00:03 General: Appears in no apparent distress. comfortable, Behavior is calm, cooperative. kl Pain: Denies pain. Neuro: Reports feeling lightheaded . Cardiovascular: No deficits noted. Respiratory: No deficits noted. GI: Reports vomiting. : No deficits noted. No signs and/or symptoms were reported regarding the genitourinary system. Derm: No deficits noted. No signs and/or symptoms reported regarding the dermatologic system. Historical: - Allergies: 00:02 No Known Allergies; kl - Home Meds: 00:02 None [Active]; kl - PMHx: 00:02 None; kl - PSHx: 00:02 None; kl - Immunization history:: Adult Immunizations unknown. - Family history:: not pertinent. - Social history:: Smoking status: unknown. Screenin:06 Abuse screen: Denies threats or abuse. Denies injuries from another. Nutritional ha1 screening: No deficits noted. Tuberculosis screening: No symptoms or risk factors identified. 00:06 [facility] ED Fall Risk Assessment (Adult) History of falling in the last 3 months, ha1 including since admission No falls in past 3 months (0 pts) Confusion or Disorientation No (0 pts) Intoxicated or Sedated No (0 pts) Impaired Gait No (0 pts) Mobility Assist Device Used No (0 pt) Altered Elimination No (0 pt) Score/Fall Risk Level 0 - 2 = Low Risk Oriented to surroundings, Maintained a safe environment, Educated pt \T\ family on fall prevention, incl call for assistance when getting out of bed, Hourly rounding (assess needs \T\ fall precautionary measures) done. Assessment: 00:06 General: Appears comfortable, Behavior is calm, cooperative. Pain:. Neuro: Level of ha1 Consciousness is awake, alert, obeys commands, Oriented to person, place, time, situation, Reports dizziness. Cardiovascular: Capillary refill < 3 seconds Patient's skin is warm and dry. Respiratory: Airway is patent Respiratory effort is even, unlabored, Respiratory pattern is regular, symmetrical. GI: Abdomen is flat, non-distended, Bowel sounds present X 4 quads. Reports nausea, vomiting. Musculoskeletal: Circulation, motion, and sensation intact. Range of motion: intact in all extremities. 00:06 Derm: Skin is pink, warm \T\ dry. ha1 01:10 Reassessment: Patient and/or family updated on plan of care and expected duration. Pain ha1 level reassessed. Patient is alert, oriented x 3, equal unlabored respirations, skin warm/dry/pink. 02:06 Reassessment: Patient and/or family updated on plan of care and expected duration. Pain ha1 level reassessed. Patient is alert, oriented x 3, equal unlabored respirations, skin warm/dry/pink. Patient states symptoms have improved. Vital Signs: 02/06 23:59 BP 135 / 91; Pulse 99; Resp 18; Temp 99(TE); Pulse Ox 99% on R/A; Weight 92.99 kg (R); Height 5 ft. 8 in. ; Pain 0/10; 02/07 00:30 BP 125 / 80; Pulse 78; Resp 18 S; Pulse Ox 97% on R/A; ha1 01:30 BP 99 / 76; Pulse 70; Resp 19 S; Pulse Ox 97% on R/A; ha1 02/06 23:59 Body Mass Index 31.17 (92.99 kg, 172.72 cm) 02/06 23:59 Pain Scale: Adult kl ED Course: 02/06 23:57 Patient arrived in ED. perla 02/07 00:02 Triage completed. basilio 00:06 Chele Chun MD is Attending Physician. [facility] 00:06 Arm band placed on right wrist. ha1 00:06 Patient has correct armband on for positive identification. Placed in gown. Bed in low ha1 position. Call light in reach. Side rails up X 1. 00:18 Isidra Smith, RN is Primary Nurse. ha1 00:33 Chest Pa And Lat (2 Views) XRAY In Process Unspecified. EDMS 01:05 SARS RAPID Sent. ha1 01:06 Influenza Screen (a \T\ B) Sent. ha1 01:06 Strep Sent. ha1 01:45 Jeremiah Steve DO is Referral Physician. [facility] 02:08 No provider procedures requiring assistance completed. Patient did not have IV access ha1 during this emergency room visit. Administered Medications: 00:45 Drug: Ondansetron PO 4 mg Route: PO; ha1 01:00 Follow up: Response: No adverse reaction ha1 00:45 Drug: Acetaminophen PO 1000 mg Route: PO; ha1 00:46 Drug: AZITHromycin PO 500 mg Route: PO; ha1 01:00 Follow up: Response: No adverse reaction ha1 Medication: 00:06 VIS not applicable for this client. ha1 Outcome: 01:45 Discharge ordered by . [facility] 02:08 Discharged to home ambulatory, with family. ha1 02:08 Condition: stable 02:08 Discharge instructions given to patient, family, Instructed on discharge instructions, follow up and referral plans. medication usage, Demonstrated understanding of instructions, follow-up care, medications, Prescriptions given X 3. 02:11 Patient left the ED. ha1 Signatures: Dispatcher [employer] EDBetty Schroeder RN RN kl Anderson, Corey, MD MD cha Alexander, [facility] Isidra Smith RN RN ha1
--- NOTE | 2023-02-07 01:45 | EDPHYS ---
Physician Documentation [facility] Name: Paramjit Elizondo Age: 22 yrs Sex: Male : 2000 Arrival Date: 02/06/2023 Time: 23:52 Bed 19 Private MD: ED Physician Chele Chun HPI: 02/07 00:16 This 22 yrs old Male presents to ER via Ambulatory with complaints of yasmany Dizziness, Nausea/Vomiting. 00:16 The patient presents with dizziness. Onset: The symptoms/episode began/occurred 1 yasmany day(s) ago. Context: occurred at home. Modifying factors: The symptoms are alleviated by nothing, the symptoms are aggravated by nothing. Associated signs and symptoms: The patient has no apparent associated signs or symptoms. Severity of symptoms: At their worst the symptoms were mild in the emergency department the symptoms are unchanged. Patient's baseline: Neuro:. The patient has not experienced similar symptoms in the past. Historical: - Allergies: 00:02 No Known Allergies; kl - Home Meds: 00:02 None [Active]; kl - PMHx: 00:02 None; kl - PSHx: 00:02 None; kl - Immunization history:: Adult Immunizations unknown. - Family history:: not pertinent. - Social history:: Smoking status: unknown. ROS: 00:16 Constitutional: Negative for fever, chills, and weight loss, Eyes: Negative for injury, yasmany pain, redness, and discharge, ENT: Negative for injury, pain, and discharge, Neck: Negative for injury, pain, and swelling, Cardiovascular: Negative for chest pain, palpitations, and edema, Abdomen/GI: Negative for abdominal pain, nausea, vomiting, diarrhea, and constipation, Back: Negative for injury and pain, : Negative for injury, bleeding, discharge, and swelling, MS/Extremity: Negative for injury and deformity, Skin: Negative for injury, rash, and discoloration, Neuro: Negative for headache, weakness, numbness, tingling, and seizure, Psych: Negative for depression, anxiety, suicide ideation, homicidal ideation, and hallucinations, Allergy/Immunology: Negative for hives, rash, and allergies, Endocrine: Negative for neck swelling, polydipsia, polyuria, polyphagia, and marked weight changes, Hematologic/Lymphatic: Negative for swollen nodes, abnormal bleeding, and unusual bruising. 00:16 Respiratory: Positive for cough, with no reported sputum. Exam: 00:16 Constitutional: This is a well developed, well nourished patient who is awake, alert, yasmany and in no acute distress. Head/Face: Normocephalic, atraumatic. Eyes: Pupils equal round and reactive to light, extra-ocular motions intact. Lids and lashes normal. Conjunctiva and sclera are non-icteric and not injected. Cornea within normal limits. Periorbital areas with no swelling, redness, or edema. ENT: Nares patent. No nasal discharge, no septal abnormalities noted. Tympanic membranes are normal and external auditory canals are clear. Oropharynx with no redness, swelling, or masses, exudates, or evidence of obstruction, uvula midline. Mucous membranes moist. Neck: Trachea midline, no thyromegaly or masses palpated, and no cervical lymphadenopathy. Supple, full range of motion without nuchal rigidity, or vertebral point tenderness. No Meningismus. Chest/axilla: Normal chest wall appearance and motion. Nontender with no deformity. No lesions are appreciated. Cardiovascular: Regular rate and rhythm with a normal S1 and S2. No gallops, murmurs, or rubs. Normal PMI, no JVD. No pulse deficits. Respiratory: Lungs have equal breath sounds bilaterally, clear to auscultation and percussion. No rales, rhonchi or wheezes noted. No increased work of breathing, no retractions or nasal flaring. Abdomen/GI: Soft, non-tender, with normal bowel sounds. No distension or tympany. No guarding or rebound. No evidence of tenderness throughout. Back: No spinal tenderness. No costovertebral tenderness. Full range of motion. Male : Normal genitalia with no discharge or lesions. Skin: Warm, dry with normal turgor. Normal color with no rashes, no lesions, and no evidence of cellulitis. MS/ Extremity: Pulses equal, no cyanosis. Neurovascular intact. Full, normal range of motion. Neuro: Awake and alert, GCS 15, oriented to person, place, time, and situation. Cranial nerves II-XII grossly intact. Motor strength 5/5 in all extremities. Sensory grossly intact. Cerebellar exam normal. Normal gait. Psych: Awake, alert, with orientation to person, place and time. Behavior, mood, and affect are within normal limits. Vital Signs: 02/06 23:59 BP 135 / 91; Pulse 99; Resp 18; Temp 99(TE); Pulse Ox 99% on R/A; Weight 92.99 kg (R); kl Height 5 ft. 8 in. ; Pain 0/10; 02/07 00:30 BP 125 / 80; Pulse 78; Resp 18 S; Pulse Ox 97% on R/A; ha1 01:30 BP 99 / 76; Pulse 70; Resp 19 S; Pulse Ox 97% on R/A; ha1 02/06 23:59 Body Mass Index 31.17 (92.99 kg, 172.72 cm) kl 02/06 23:59 Pain Scale: Adult kl MDM: 00:06 Patient medically screened. [facility] 00:18 Differential diagnosis: generalized weakness. Data reviewed: vital signs, nurses notes, [facility] lab test result(s), radiologic studies. Consideration of Admission/Observation Escalation of care including admission/observation considered. I considered the following discharge prescriptions or medication management in the emergency department Medications were administered in the Emergency Department. See MAR. Test considered but Not performed: Labs: NO LABS , NO EKG. Care significantly affected by the following chronic conditions: NONE. Counseling: I had a detailed discussion with the patient and/or guardian regarding: the historical points, exam findings, and any diagnostic results supporting the discharge/admit diagnosis, lab results, radiology results, the need for outpatient follow up, for definitive care, a family practitioner. 02/07 00:14 Order name: Strep [facility] 02/07 00:14 Order name: Influenza Screen (a \T\ B); Complete Time: 01:41 [facility] 02/07 00:14 Order name: SARS RAPID; Complete Time: 01:41 [facility] 02/07 01:42 Order name: Throat Culture [facility] 02/07 00:14 Order name: Chest Pa And Lat (2 Views) XRAY [facility] 02/07 00:14 Order name: PO challenge; Complete Time: 01:02 [facility] Administered Medications: 00:45 Drug: Ondansetron PO 4 mg Route: PO; ha1 01:00 Follow up: Response: No adverse reaction ha1 00:45 Drug: Acetaminophen PO 1000 mg Route: PO; ha1 00:46 Drug: AZITHromycin PO 500 mg Route: PO; ha1 01:00 Follow up: Response: No adverse reaction ha1 Disposition Summary: 02/07/23 01:45 Discharge Ordered Location: Home [facility] Problem: new yasmany Symptoms: have improved yasmany Condition: Stable yasmany Diagnosis - Dizziness and giddiness yasmany - Vomiting yasmany - Acute upper respiratory infection, unspecified yasmany Followup: yasmany - With: Private Physician - When: 2 - 3 days - Reason: Recheck today's complaints, Continuance of care, Re-evaluation by your physician Followup: yasmany - With: - When: 2 - 3 days - Reason: Recheck today's complaints, Continuance of care, Re-evaluation by your physician Discharge Instructions: - Discharge Summary Sheet yasmany - Cool Mist Vaporizer yasmany - Upper Respiratory Infection, Adult, [id number] yasmany - Cough, Adult, [id number] yasmany - Cough, Adult yasmany - Vomiting, Adult yasmany Forms: - Medication Reconciliation Form yasmany - Thank You Letter yasmany - Antibiotic Education ysamany - Prescription Opioid Use [facility] Prescriptions: - Zofran 4 mg Oral Tablet - take 1 tablet by ORAL route every 12 hours As needed; 20 tablet; Refills: 0, [facility] Product Selection Permitted - Tessalon Perles 100 mg Oral Capsule - take 2 capsule by ORAL route every 8 hours As needed; 30 capsule; Refills: 0, [facility] Product Selection Permitted - Zithromax Z-Kwan 250 mg Oral Tablet - take 1 tablet by ORAL route as directed for 5 days Day 1 - take two (2) tablets [facility] one time. Day 2, 3, 4 , 5 take one (1) tablet once daily.; 6 tablet; Refills: 0, Product Selection Permitted Signatures: Dispatcher [employer] Betty Zamora RN RN kl Anderson, Corey, MD MD cha Ayala, Heidy, RN RN ha1
[2023-02-07 02:37] VITALS: TEMP 99
[2023-02-07 02:38] VITALS: O2SAT 97
[2023-02-07 02:39] VITALS: BP 99/76
--- NOTE | 2023-02-08 15:50 | RAD REPORT ---
EXAM DESCRIPTION: INDICATION: Cough.. TECHNIQUE: AP portable chest x-ray upright on 01/30/2023, at 12: 24. COMPARISON: 10/30/2022. FINDINGS: Heart: Normal size and configuration. Mediastinal Structures: Normal and midline.. Lung Mills: No active disease. Pulmonary Vascularity: Normal. Pleural Space: No active disease. Bony Structures: Normal. IMPRESSION: Normal study. Electronically signed by: Cj Candelario MD 02/07/2023 12:41 AM CDT Due to temporary technical issues with the PACS/Fluency reporting system, reports are being signed by the in house radiologists without review as a courtesy to insure prompt reporting. The interpreting radiologist is fully responsible for the content of the report.
== END 2023-02-07 02:11 | disposition home or self-care (01) ==
LOC: ER 23:52
DX: J06.9 Acute upper respiratory infection, unspecified (principal); R11.10 Vomiting, unspecified; Z20.822 Contact with and (suspected) exposure to COVID-19
CPT/HCPCS: 87070; 36415; 87081; 87804 ×2; 71046; 87811; Q0162; 99284

== ENCOUNTER 2023-03-30 18:13 | Emergency (ER) | payer BC ==
--- OUTSIDE RECORDS SUMMARY | 2023-03-30 18:16 | XMS REPORT | Continuity of Care Document ---
:2000 Author Organization [facility] t Address [address] [place] [address] Care Team Providers Name Role Phone Asked, No Pcp Primary Care Physician Unavailable NORMAN TORRES Attending Clinician Unavailable Lab, Ang - Db Attending Clinician Unavailable Brian [employer] Attending Clinician Payers Payer Name Policy Type Policy Number Effective Date Expiration Date S ynes [facility] - [id number] 2023 00:00:00 OUT OF STATE Problems Condition Condition Condition Status Onset Resolution Last Treating Co mments Source Name Details Category Date Date Treatment Clinician Date Encounter Encounter Disease Active Uni vers to [facility] 03[facility]18 [facility] Anxiety Anxiety Disease Active Univers and and 03[place]18 [place] Need for Need for Disease Active Unive rs hepatitis hepatitis 03-18 ity of C C 00:00: [place] screening screening 00 Medi shaji test test Branch Gastroesop Gastroesop Disease Active U nivers hageal hageal 03-18 ity of reflux reflux 00:00: [place] disease disease 00 Medical without without Branch esophagiti esophagiti s s Allergies, Adverse Reactions, Alerts Allergy Allergy Status Severity Reaction(s) Onset Inactive Treating Comm ents Source Name Type Date Date Clinician NO KNOWN Drug Active Arnulfo ALLERGIE Class ity of S [place] [facility] Social History Social Habit Start Date Stop Date Quantity Comments Source Gender identity [facility] of Social 2021-08-02 2021-08-02 [facility] function 00:00:00 00:00:00 Sex Ass[birth year] [facility] 00:00:00 00:00:00 Smoking Status Start Date Stop Date Source Tobacco smoking consumption unknown [facility] Medications Ordered Filled Start Stop Current Ordering Indication Dosage Frequency Signature Comments Components Source Medication Medication Date Date Medication? Clinician (SIG) Name Name escitalopra Yes [id number] 10mg Take 1 Univers m oxalate 6-06 tablet by ity o f 10 mg 00:00: mouth in [place] tablet 00 the Medical morning. Branch escitalopra Yes [id number] 10mg Take 1 Univers m oxalate 6-06 tablet by ity o f 10 mg 00:00: mouth in [place] tablet 00 the Medical morning. Branch escitalopra 0 Yes [id number] 10mg Take 1 Univers m oxalate 6-06 tablet by ity o f 10 mg 00:00: mouth in [place] tablet 00 the Medical morning. Branch escitalopra 0 Yes [id number] 10mg Take 1 Univers m oxalate 6-06 tablet by ity o f 10 mg 00:00: mouth in [place] tablet 00 the Medical morning. Branch escitalopra 0 Yes [id number] 10mg Take 1 Univers m oxalate 6-06 tablet by ity o f 10 mg 00:00: mouth in [place] tablet 00 the Medical morning. Branch busPIRone 2022-0 2022- Yes [id number] 10mg Take 1 Univers 10 mg 6-06 07-07 tablet by ity of tablet 00:00: 04:59 mouth 2 [place] 00 :00 (two) Medical times Branch daily as needed (anxiety) for up to 30 days. busPIRone 2022-0 2022- Yes [id number] 10mg Take 1 Univers 10 mg 6-06 07-07 tablet by ity of tablet 00:00: 04:59 mouth 2 [place] 00 :00 (two) Medical times Branch daily as needed (anxiety) for up to 30 days. busPIRone 2022- Yes [id number] 10mg Take 1 Univers 10 mg 03-18 tablet by ity of tablet 00:00: 04:59 mouth 2 [place] 00 :00 (two) Medical times Branch daily as needed (anxiety) for up to 30 days. busPIRone 2022- Yes [id number] 10mg Take 1 Univers 10 mg 03-18 tablet by ity of tablet 00:00: 04:59 mouth 2 [place] 00 :00 (two) Medical times Branch daily as needed (anxiety) for up to 30 days. busPIRone 2022- Yes [id number] 10mg Take 1 Univers 10 mg 03-18 tablet by ity of tablet 00:00: 04:59 mouth 2 [place] 00 :00 (two) Medical times [facility] daily as needed (anxiety) for up to 30 days. Vital Signs Vital Name Observation Time Observation Value Comments Source Systolic blood 2023-03-18 18:15:00 113 mm[Hg] Univer sity [facility] Diastolic blood 2023-03-18 18:15:00 73 mm[facility]Hg[facility] 2023-03-18 18:15:00 78 /min [facility] Body temperature 2023-03-18 18:15:00 [facility] height 2023-03-18 18:15:00 172.7 cm [facility] Body weight 2023-03-18 18:15:00 89.812 kg [facility] BMI 2023-03-18 18:15:00 30.11 kg/m2 [facility] Oxygen saturation in 2023-03-18 18:15:00 99 /min [facility] Arterial blood by [facility] Pulse oximetry Branch Procedures This patient has no known procedures. Encounters Start End Encounter Admission Attending Care Care Encounter Source Date/Time Date/Time Type Type Clinicians Facility Department ID 2023-05-09 2023-05-09 Outpatient Kade TORRES [facility] [id number] Univers 09:30:00 09:30:00 NORMAN cline [facility] 2023-03-18 2023-03-18 Informatics Pharmacist Lab, Ang - Db [facility] [id number] Univers 14:00:00 14:15:00 Visit Norman Torres [id number] ity of [place] [id number] David as ARMAAN?BLEA [id number] Id karen SIERRA [address] [facility] OFFICE [facility] 2023-03-18 2023-03-18 Outpatient R BRIAN [facility] [id number] Univers 13:00:00 13:45:43 NORMAN cline [facility] 2023-03-18 2023-03-18 Office Carmenlaure [facility] [id number] Univers 13:00:00 13:45:43 Visit Norman ALMONTE [id number] it y of [place] [id number] David as ARMAAN?BLEA [id number] Id karen SIERRA [address] [facility] OFFICE [facility] 2023-03-18 2023-03-18 Letter Brian [facility] [id number] Univers 00:00:00 00:00:00 (Out) Norman ALMONTE [id number] it y of [place] [id number] David as ARMAAN?BLEA [id number] Id karen SIERRA [address] [facility] OFFICE [facility] 2023-03-18 2023-03-18 Abstract [facility] [id number] Univers 00:00:00 00:00:00 Norman ALMONTE [id number] it y of [place] [id number] David as ARMAAN?BLEA [id number] Id dictylor SIERRA [address] [facility] OFFICE [facility] 2021-08-02 2021-08-02 Emergency [facility] [id number] [place] [address] 00:00:00 00:00:[address] Results This patient has no known results.
[2023-03-30 18:56] LABS: Absolute Lymphocytes (CBC) 2.1 K/uL (0.7-4.9); Hematocrit 49.3 % (39.6-49.0); Lymphocytes % 20.6 % (15.3-44.8); MCV 89.8 fL (80-100); MPV 8.3 fL (7.6-11.3); RBC Red Blood Cell Count 5.49 M/uL (4.33-5.43)
[2023-03-30] MEDS ORDERED: ONDANSETRON 4 MG/2 ML VIAL ONE (19:08)
[2023-03-30] MEDS ORDERED: PANTOPRAZOLE 40 MG INJ ONE (19:08)
[2023-03-30 19:13] LABS: Albumin 4.3 g/dL (3.4-5.0); Bilirubin Total 0.6 mg/dL (0.2-1.0); Potassium 3.6 mEq/L (3.5-5.1); Protein, Total 8.3 g/dL (6.4-8.2)
--- NOTE | 2023-03-30 20:39 | ER ---
Nurse's Notes [facility] Name: Paramjit Elizondo Age: 22 yrs Sex: Male : 2000 Arrival Date: 03/30/2023 Time: 18:13 Bed 19 Private MD: Diagnosis: Epigastric pain Presentation: 03/30 18:23 Chief complaint: Patient states: ABD pain that began last night with N/V; also stated vg1 black stool and stated took Pepto-Bismol last night. Coronavirus screen: Vaccine status: Patient reports being unvaccinated. Client denies travel out of the [place] in the last 14 days. Ebola Screen: Patient negative for fever greater than or equal to 101.5 degrees Fahrenheit, and additional compatible Ebola Virus Disease symptoms Patient denies exposure to infectious person. Patient denies travel to an Ebola-affected area in the 21 days before illness onset. Initial Sepsis Screen: Does the patient meet any 2 criteria? No. Patient's initial sepsis screen is negative. Does the patient have a suspected source of infection? No. Patient's initial sepsis screen is negative. Risk Assessment: Do you want to hurt yourself or someone else? Patient reports no desire to harm self or others. Onset of symptoms was March 29, 2023. 18:23 Method Of Arrival: Ambulatory vg1 18:23 Acuity: KYLAH 3 vg1 Triage Assessment: 18:25 General: Appears in no apparent distress. comfortable, Behavior is calm, cooperative. vg1 Pain: Complains of pain in epigastric area Pain currently is 5 out of 10 on a pain scale. GI: Abdomen is round non-distended, Stools are reported to be 'dark'. Reports nausea, vomiting. Historical: - Allergies: 18:25 No Known Allergies; vg1 - Home Meds: 18:25 Vitamin D Oral [Active]; vg1 - PMHx: 18:25 None; vg1 - PSHx: 18:25 None; vg1 - Immunization history:: Client reports having NOT received the Covid vaccine. - Social history:: Smoking status: Patient denies any tobacco usage or history of. Screenin:39 [facility] ED Fall Risk Assessment (Adult) History of falling in the last 3 months, kr3 including since admission No falls in past 3 months (0 pts) Confusion or Disorientation No (0 pts) Intoxicated or Sedated No (0 pts) Impaired Gait No (0 pts) Mobility Assist Device Used No (0 pt) Altered Elimination No (0 pt) Score/Fall Risk Level 0 - 2 = Low Risk. Abuse screen: Denies threats or abuse. Nutritional screening: No deficits noted. Tuberculosis screening: No symptoms or risk factors identified. Assessment: 19:36 Reassessment: Patient appears in no apparent distress at this time. Patient and/or kr3 family updated on plan of care and expected duration. Pain level reassessed. Patient is alert, oriented x 3, equal unlabored respirations, skin warm/dry/pink. 20:39 Reassessment: Patient appears in no apparent distress at this time. Patient and/or kr3 family updated on plan of care and expected duration. Pain level reassessed. Patient is alert, oriented x 3, equal unlabored respirations, skin warm/dry/pink. 20:40 GI: Bowel sounds present X 4 quads. Abd is soft and non tender X 4 quads. kr3 Vital Signs: 18:23 BP 138 / 97; Pulse 87; Resp 16; Temp 98.7(O); Pulse Ox 100% on R/A; Weight 86.18 kg; vg1 Height 5 ft. 8 in. ; Pain 5/10; 19:37 BP 126 / 76; Pulse 66; Resp 18; Pulse Ox 98% on R/A; kr3 20:39 BP 133 / 91; Pulse 66; Resp 18; Pulse Ox 98% on R/A; kr3 18:23 Body Mass Index 28.89 (86.18 kg, 172.72 cm) vg1 18:23 Pain Scale: Adult vg1 ED Course: 18:15 Patient arrived in ED. mr 18:18 Chele Berger PA is PHCP. cp 18:18 Omar Steve MD is Attending Physician. cp 18:25 Triage completed. vg1 18:25 Arm band placed on. vg1 18:28 Bed in low position. Call light in reach. Side rails up X2. kr3 18:33 Inserted saline lock: 20 gauge in right antecubital area, using aseptic technique. sg5 Blood collected. 18:38 My Robertson, ERIK is Primary Nurse. kr3 20:00 US Abdomen Limited: gallbladder In Process Unspecified. EDMS 20:40 No provider procedures requiring assistance completed. kr3 20:46 IV discontinued, intact, bleeding controlled, No redness/swelling at site. Pressure kr3 dressing applied. Administered Medications: 19:19 Drug: Ondansetron IVP 4 mg Route: IVP; Site: right antecubital; kr3 19:56 Follow up: Response: No adverse reaction kr3 19:19 Drug: Pantoprazole IVP 40 mg Route: IVP; Site: right antecubital; kr3 19:56 Follow up: Response: No adverse reaction kr3 Medication: 20:40 VIS not applicable for this client. kr3 Outcome: 20:38 Discharge ordered by MD. cp 20:45 Discharged to home ambulatory. kr3 20:45 Condition: stable 20:45 Discharge instructions given to patient, Instructed on discharge instructions, follow up and referral plans. medication usage, Demonstrated understanding of instructions, follow-up care, medications, Prescriptions given X 2. 20:46 Patient left the ED. kr3 Signatures: Dispatcher [employer] EDMS KirklandSadie kelsey mr Chele Berger, Kassandra Dixon cp, RN RN vg1 My Robertson, RN RN kr3 Livier Gar RN RN sg5
--- NOTE | 2023-03-30 20:39 | EDPHYS ---
Physician Documentation [facility] Name: Paramjit Elizondo Age: 22 yrs Sex: Male : 2000 Arrival Date: 03/30/2023 Time: 18:13 Bed 19 Private MD: ED Physician Omar Steve HPI: 03/30 18:35 This 22 yrs old Male presents to ER via Ambulatory with complaints of cp Abdominal Pain, Black/Tarry Stools. 18:35 The patient presents with abdominal pain in the epigastric area, in the upper abdomen. cp Onset: The symptoms/episode began/occurred yesterday. Associated signs and symptoms: Pertinent positives: dark colored stools, Pertinent negatives: blood in stools, constipation, diarrhea, fever. Modifying factors: the symptoms are aggravated by pressure. Severity of pain: in the emergency department the pain has improved. Patient reports taking Pepto Bismol for abdominal pain last night that helped. Historical: - Allergies: 18:25 No Known Allergies; vg1 - Home Meds: 18:25 Vitamin D Oral [Active]; vg1 - PMHx: 18:25 None; vg1 - PSHx: 18:25 None; vg1 - Immunization history:: Client reports having NOT received the Covid vaccine. - Social history:: Smoking status: Patient denies any tobacco usage or history of. ROS: 18:40 Constitutional: Negative for body aches, chills, fever, poor PO intake. cp 18:40 Eyes: Negative for injury, pain, redness, and discharge. cp 18:40 ENT: Negative for drainage from ear(s), ear pain, sore throat, difficulty swallowing, difficulty handling secretions. 18:40 Cardiovascular: Negative for chest pain, palpitations. 18:40 Respiratory: Negative for cough, shortness of breath, wheezing. 18:40 Abdomen/GI: Positive for abdominal pain, dark colored stool, Negative for vomiting, diarrhea, constipation. 18:40 Neuro: Negative for altered mental status, dizziness, headache, weakness. 18:40 All other systems are negative. Exam: 18:45 Constitutional: The patient appears in no acute distress, alert, awake, comfortable, cp non-toxic, well developed, well nourished. 18:45 Head/Face: Normocephalic, atraumatic. cp 18:45 Eyes: Periorbital structures: appear normal, Conjunctiva: normal, no exudate, no injection, Sclera: no appreciated abnormality, Lids and lashes: appear normal, bilaterally. 18:45 ENT: External ear(s): are unremarkable, Nose: is normal, Mouth: Lips: moist, Oral mucosa: pink and intact, moist, Posterior pharynx: is normal, airway is patent, no erythema, no exudate. 18:45 Chest/axilla: Inspection: normal. 18:45 Cardiovascular: Rate: normal, Rhythm: regular. 18:45 Respiratory: the patient does not display signs of respiratory distress, Respirations: normal, no use of accessory muscles, no retractions, labored breathing, is not present, Breath sounds: are clear throughout, no decreased breath sounds, no stridor, no wheezing. 18:45 Abdomen/GI: Inspection: abdomen appears normal, Bowel sounds: active, all quadrants, Palpation: soft, in all quadrants, mild abdominal tenderness, in the epigastric area, rebound tenderness, is not appreciated, involuntary guarding, is not appreciated. 18:45 Back: pain, is absent, ROM is normal. Vital Signs: 18:23 BP 138 / 97; Pulse 87; Resp 16; Temp 98.7(O); Pulse Ox 100% on R/A; Weight 86.18 kg; vg1 Height 5 ft. 8 in. ; Pain 5/10; 19:37 BP 126 / 76; Pulse 66; Resp 18; Pulse Ox 98% on R/A; kr3 20:39 BP 133 / 91; Pulse 66; Resp 18; Pulse Ox 98% on R/A; kr3 18:23 Body Mass Index 28.89 (86.18 kg, 172.72 cm) vg1 18:23 Pain Scale: Adult vg1 MDM: 18:27 Patient medically screened. 18:45 Differential diagnosis: cholecystitis, Cholelithiasis, gastritis, gastroesophageal cp reflux disease, GI Bleed, non-specific abd pain, pancreatitis, Peptic Ulcer Disease, Perf. Duodenal Ulcer, Perf. Gastric Ulcer. 20:37 Data reviewed: vital signs, nurses notes, lab test result(s), radiologic studies, cp ultrasound. 20:37 I considered the following discharge prescriptions or medication management in the emergency department Medications were administered in the Emergency Department. See MAR. Test considered but Not performed: CT: abdomen/pelvis. Counseling: I had a detailed discussion with the patient and/or guardian regarding: the historical points, exam findings, and any diagnostic results supporting the discharge/admit diagnosis, lab results, radiology results, to return to the emergency department if symptoms worsen or persist or if there are any questions or concerns that arise at home. Response to treatment: the patient's symptoms have markedly improved after treatment, and as a result, I will discharge patient. Special discussion: Based on the patient's Hx, exam, and Dx evaluation, there is no indication for emergent surgery or inpatient Tx. It is understood by the patient/guardian that if the Sx's persist or worsen they need to return immediately for re-evaluation. 03/30 18:30 Order name: CBC with Diff; Complete Time: 19:24 cp 03/30 18:30 Order name: CMP; Complete Time: 19:24 cp 03/30 18:30 Order name: Lipase; Complete Time: 19:24 cp 03/30 18:30 Order name: Urinalysis w/ reflexes cp 03/30 19:24 Order name: US Abdomen Limited: gallbladder cp 03/30 18:30 Order name: IV Saline Lock; Complete Time: 18:33 cp 03/30 18:30 Order name: Labs collected and sent; Complete Time: 18:35 cp Administered Medications: 19:19 Drug: Ondansetron IVP 4 mg Route: IVP; Site: right antecubital; kr3 19:56 Follow up: Response: No adverse reaction kr3 19:19 Drug: Pantoprazole IVP 40 mg Route: IVP; Site: right antecubital; kr3 19:56 Follow up: Response: No adverse reaction kr3 Disposition Summary: 03/30/23 20:38 Discharge Ordered Location: Home cp Problem: new cp Symptoms: have improved cp Condition: Stable cp Diagnosis - Epigastric pain cp Followup: cp - With: Private Physician - When: 2 - 3 days - Reason: Worsening of condition Discharge Instructions: - Discharge Summary Sheet cp - Abdominal Pain, Adult cp - Gastroesophageal Reflux Disease, Adult cp Forms: - Medication Reconciliation Form cp - Thank You Letter cp - Antibiotic Education cp - Prescription Opioid Use cp Prescriptions: - Pepcid 20 mg Oral Tablet - take 1 tablet by ORAL route every 12 hours for 10 days; 20 tablet; Refills: 0, cp Product Selection Permitted - Zofran 4 mg Oral Tablet - take 1 tablet by ORAL route every 12 hours As needed; 20 tablet; Refills: 0, cp Product Selection Permitted Signatures: Dispatcher [employer] Chele Langford PA PA cp Garcia, Victoria, RN RN vg1 My Robertson RN RN kr3
[2023-03-30 20:41] LABS: Specific Gravity 1.025 (1.005-1.030); Urine Bacteria None Seen /HPF (<20); Urine Bilirubin NEGATIVE (Negative); Urine Blood Negative (Negative); Urine Clarity Clear (Clear); Urine Color Light-Yellow (Yellow); Urine Glucose NEGATIVE (Negative); Urine Mucus Slight /HPF (None Seen); Urine Protein TRACE (Negative); Urine RBC <5 /HPF (None Seen); Urine Urobilinogen Normal (Normal)
--- NOTE | 2023-03-30 20:53 | RAD REPORT ---
EXAM DESCRIPTION: US - Abdomen Exam Limited - 03/30/2023 7:58 pm CLINICAL HISTORY: ABD PAIN COMPARISON: No comparisons TECHNIQUE: Sonographic grayscale and color flow images of the right upper abdominal quadrant were obtained. FINDINGS: The gallbladder is suboptimally distended, which somewhat limits evaluation. It demonstrat es no gallstones. No pericholecystic fluid or gallbladder wall thickening. The common bile duct is no rmal measuring 4 mm. The liver demonstrates no findings of intrahepatic biliary dilatation. IMPRESSION: No acute abnormalities of the gallbladder. No biliary duct dilation.
[2023-03-30 20:59] VITALS: TEMP 98.7
[2023-03-30 21:10] VITALS: O2SAT 98
[2023-03-30 21:11] VITALS: BP 133/91
== END 2023-03-30 20:46 | disposition home or self-care (01) ==
LOC: ER 18:13
DX: R10.13 Epigastric pain (principal)
CPT/HCPCS: 85025; 81001; 36415; 83690; 80053; 76705; 96375; 96374; 99284; C9113; J2405